=== PATIENT | male | born 1955 | race Asian ===

== ENCOUNTER 2024-10-04 21:35 | Emergency (ER) | payer MEDICARE, OTHER ==
[~2024-10-04] VITALS: Ht 165.1 cm; Wt 72.0 kg
[~2024-10-04 21:35] MED LIST: ASPI-1450 PO; ATOR40TA28 PO; CLOP75TA83 PO; DSS100 PO; FAMO20 PO; METO25XL PO
[2024-10-04 21:39] VITALS: TEMP 97.5
[2024-10-04] MEDS ORDERED: LOSA-382 PO (21:42)
[2024-10-04] MEDS ORDERED: AMLO-257 PO (21:42)
[2024-10-04] MEDS ORDERED: HYDR25TA2 PO (21:42)
[2024-10-04 22:10] LABS: BASOPHILS % (AUTO) 0.2 % (0.0-2.0); EOSINOPHILS % (AUTO) 1.1 % (1.0-6.0); HEMATOCRIT 39.7 % (41-53); HEMOGLOBIN 12.7 g/dL (13.5-17.5); LYMPHOCYTES # (AUTO) 1.9 K/uL (1.0-4.8); LYMPHOCYTES % (AUTO) 14.7 % (22.0-44.0); MEAN CORPUSCULAR HEMOGLOBIN 24.2 pg (26.0-34.0); MEAN CORPUSCULAR VOLUME 76 fL (80-100); MONOCYTES # (AUTO) 0.9 K/uL (0.1-1.0); MONOCYTES % (AUTO) 6.8 % (2.0-9.0); NEUTROPHILS # (AUTO) 9.8 K/uL (1.8-7.7); NEUTROPHILS % (AUTO) 77.2 % (40.0-70.0); PLATELET COUNT (AUTO) 305 K/uL (150-450); RED BLOOD CELL COUNT(AUTO) 5.24 MIL/uL (4.50-5.90); RED CELL DISTRIBUTION WIDTH 14.5 % (11.5-14.5); WHITE BLOOD COUNT (AUTO) 12.7 K/uL (4.5-11.0)
[2024-10-04 22:15] LABS: ANION GAP 8 mmol/L (8-16); CALCIUM, TOTAL 8.9 mg/dL (8.8-10.5); CARBON DIOXIDE 32 mmol/L (22-29); CHLORIDE 102 mmol/L (98-107); CREATININE 1.05 mg/dL (0.60-1.30); GLOMERULAR FILTR. RATE CALC > 60 mL/min (>60); GLUCOSE,RANDOM 139 mg/dL (70-110); POTASSIUM 3.2 mmol/L (3.5-5.1); SODIUM SERUM 142 mmol/L (136-145); UREA NITROGEN, BLOOD 14 mg/dL (7-18)
[2024-10-04 22:20] LABS: ALBUMIN 3.5 g/dL (3.4-5.0); BILIRUBIN,DIRECT 0.1 mg/dL (0.00-0.20); BILIRUBIN,TOTAL 0.4 mg/dL (0.1-1.0); TOTAL PROTEIN, SERUM 7.4 g/dL (6.4-8.2)
[2024-10-04 22:22] LABS: TROPONIN I-HIGH SENSITIVITY 11 ng/L (<76)
[2024-10-04 22:23] LABS: PROTHROMBIN TIME 9.7 SEC (9.4-11.6)
[2024-10-04] MEDS: POTASSIUM CHLORIDE 20 MEQ ER TABLET PO ONE (23:04)
[2024-10-04] MEDS: FAMOTIDINE 20 MG/2 ML VIAL IVP ONE (23:04)
[2024-10-04] MEDS: ONDANSETRON HCL 4 MG/2 ML VIAL IVP ONE (23:04)
[2024-10-04] MEDS: MAG HYDROX/ALUMINUM HYD/SIMETH 30 ML SUSPENSION UDCUP PO ONE (23:05)
[2024-10-04] MEDS: MORPHINE SULFATE 2 MG/ML SYRINGE IVP ONE (23:05)
[2024-10-04 23:16] VITALS: BP 161/72; PULSE 75; RESP 28; O2SAT 97
[2024-10-05] MEDS ORDERED: ASPIRIN 325 MG TABLET PO ONE (00:45)
== END 2024-10-05 00:56 | disposition short-term general hospital (02) ==
LOC: EMS 22:03
DX: R07.2 Precordial pain (principal); R55 Syncope and collapse; R42 Dizziness and giddiness; I10 Essential (primary) hypertension; E78.00 Pure hypercholesterolemia, unspecified; R06.02 Shortness of breath; Z79.02 Long term (current) use of antithrombotics/antiplatelets; Z86.73 Personal history of transient ischemic attack (TIA), and cerebral infarction without residual deficits; Z79.899 Other long term (current) drug therapy
CPT/HCPCS: 99285; 96374; 96375; 71045; 80048; 80076; 82550; 83690; 83880; 84484; 85025; 85610; 85730; 36415; 93005; J3490; J2270; J2405